=== PATIENT | female | born 1960 | race Caucasian/White ===

== ENCOUNTER 2024-01-13 14:24 | Emergency (ER) | payer MEDICARE, BC ==
[~2024-01-13] VITALS: Ht 157.5 cm; Wt 77.7 kg
[2024-01-13] MEDS ORDERED: MODA100T31 PO (14:30)
[2024-01-13 15:58] VITALS: BP 102/70; PULSE 70; RESP 16; TEMP 97.7; O2SAT 97
== END 2024-01-13 16:00 | disposition home or self-care (01) ==
LOC: ER 14:25
DX: I82.811 Embolism and thrombosis of superficial veins of right lower extremity (principal); Z88.5 Allergy status to narcotic agent; Z88.0 Allergy status to penicillin; Z79.899 Other long term (current) drug therapy
CPT/HCPCS: 93971; 99284